=== PATIENT | female | born 1980 | race Caucasian/White ===

== ENCOUNTER 2021-10-08 11:05 | Emergency (ER) | payer SELFPAY ==
--- NOTE | 2021-10-08 11:40 | ER ---
Nurse's Notes [facility] Name: Timbo Samson Age: 40 yrs Sex: Female : 1980 Arrival Date: 10/08/2021 Time: 11:06 Bed 6 Private MD: Diagnosis: Cellulitis of left lower limb Presentation: 10/08 11:15 Chief complaint: Patient states: swelling to l ankle without injury x 5 days. states [facility] that she noticed increased swelling after moving and packing 5 days ago and has not go down. Coronavirus screen: Vaccine status: Client denies travel out of the [place] in the last 14 days. Ebola Screen: Patient negative for fever greater than or equal to 101.5 degrees Fahrenheit, and additional compatible Ebola Virus Disease symptoms Patient denies exposure to infectious person. Patient denies travel to an Ebola-affected area in the 21 days before illness onset. Initial Sepsis Screen: Does the patient meet any 2 criteria? No. Patient's initial sepsis screen is negative. Does the patient have a suspected source of infection? No. Patient's initial sepsis screen is negative. Risk Assessment: Do you want to hurt yourself or someone else? Patient reports no desire to harm self or others. Onset of symptoms was October 03, 2021. 11:15 Method Of Arrival: Ambulatory [facility] 11:15 Acuity: CHULA 3 [facility] Triage Assessment: 11:18 General: Appears in no apparent distress. Behavior is calm, cooperative. Pain: [facility] Complains of pain in left lateral ankle, left Achilles, left medial ankle and anterior aspect of left ankle Pain currently is 4 out of 10 on a pain scale. Quality of pain is described as aching, throbbing, Pain began Is continuous, Aggravated by increased activity. Musculoskeletal: Reports pain in left lateral ankle, left Achilles, left medial ankle and anterior aspect of left ankle. Historical: - Allergies: 11:19 No Known Allergies; 6 - PMHx: 11:19 None; [facility] - Immunization history:: Adult Immunizations up to date. - Social history:: Smoking status: Patient denies any tobacco usage or history of. Patient/guardian denies using alcohol, street drugs, The patient lives with family. - Family history:: not pertinent. Screenin:19 Abuse screen: Denies threats or abuse. Nutritional screening: No deficits noted. [facility] Tuberculosis screening: No symptoms or risk factors identified. Fall Risk None identified. Assessment: 11:44 General: see triage note. [facility] Vital Signs: 11:15 BP 166 / 66; Pulse 53; Resp 17; Temp 97.6; Pulse Ox 100% ; Weight 86.18 kg; Height 5 [facility] ft. 3 in. (160.02 cm); Pain 3/10; 11:15 Body Mass Index 33.66 (86.18 kg, 160.02 cm) [facility] ED Course: 11:06 Patient arrived in ED. am2 11:14 Teresa Mchugh, RN is Primary Nurse. [facility] 11:16 Elenita Gaines MD is Attending Physician. [facility] 11:18 Triage completed. [facility] 11:20 Arm band placed on left wrist. [facility] 11:20 Bed in low position. Call light in reach. Side rails up X 1. [facility] 11:45 No provider procedures requiring assistance completed. [facility] 11:45 Patient did not have IV access during this emergency room visit. [facility] Administered Medications: No medications were administered Outcome: 11:40 Discharge ordered by . [facility] 11:45 Discharged to home ambulatory. [facility] 11:45 Condition: good 11:45 Discharge instructions given to patient, Instructed on discharge instructions, Demonstrated understanding of instructions, follow-up care, medications, Prescriptions given X 2. 11:50 Patient left the ED. [facility] Signatures: Ailin Darby [facility] Elenita Gaines MD MD [facility] Teresa Mchugh, RN RN [facility]
--- NOTE | 2021-10-08 11:40 | EDPHYS ---
Physician Documentation [facility] Name: Timbo Samson Age: 40 yrs Sex: Female : 1980 Arrival Date: 10/08/2021 Time: 11:06 Bed 6 Private MD: ED Physician Elenita Gaines HPI: 10/08 11:40 This 40 yrs old Female presents to ER via Ambulatory with complaints of Foot Pain - ma2 swelling/left. 11:35 Associated signs and symptoms: Pertinent negatives: fever, nausea, numbness, rash, ma2 swelling, tingling, vomiting, warmth, weakness. 40-year-old female healthy, presents with mild left foot redness for 3 days, constant eval DVT no calf swelling, no change in sensation. No trauma.. Historical: - Allergies: 11:19 No Known Allergies; jh6 - PMHx: 11:19 None; [facility] - Immunization history:: Adult Immunizations up to date. - Social history:: Smoking status: Patient denies any tobacco usage or history of. Patient/guardian denies using alcohol, street drugs, The patient lives with family. - Family history:: not pertinent. ROS: 11:35 MS/extremity: Negative for abrasion, deformity, erythema, tenderness, tingling, warmth. ma2 11:35 Constitutional: Negative for fever, chills, and weight loss. 11:35 All other systems are negative. Exam: 11:35 Constitutional: This is a well developed, well nourished patient who is awake, alert, ma2 and in no acute distress. Head/Face: Normocephalic, atraumatic. Eyes: Pupils equal round and reactive to light, extra-ocular motions intact. Lids and lashes normal. Conjunctiva and sclera are non-icteric and not injected. Cornea within normal limits. Periorbital areas with no swelling, redness, or edema. ENT: Nares patent. No nasal discharge, no septal abnormalities noted. Tympanic membranes are normal and external auditory canals are clear. Oropharynx with no redness, swelling, or masses, exudates, or evidence of obstruction, uvula midline. Mucous membranes moist. Neck: Trachea midline, no thyromegaly or masses palpated, and no cervical lymphadenopathy. Supple, full range of motion without nuchal rigidity, or vertebral point tenderness. No Meningismus. Chest/axilla: Normal chest wall appearance and motion. Nontender with no deformity. No lesions are appreciated. Cardiovascular: Regular rate and rhythm with a normal S1 and S2. No gallops, murmurs, or rubs. Normal PMI, no JVD. No pulse deficits. Respiratory: Lungs have equal breath sounds bilaterally, clear to auscultation and percussion. No rales, rhonchi or wheezes noted. No increased work of breathing, no retractions or nasal flaring. Abdomen/GI: Soft, non-tender, with normal bowel sounds. No distension or tympany. No guarding or rebound. No evidence of tenderness throughout. Back: No spinal tenderness. No costovertebral tenderness. Full range of motion. Skin: Warm, dry with normal turgor. Normal color with no rashes, no lesions, and no evidence of cellulitis. MS/ Extremity: Mild left foot swelling, edema, this is consistent with cellulitis there is mild induration and warmth, redness. Pulses equal, no cyanosis. Neurovascular intact. Full, normal range of motion. Neuro: Awake and alert, GCS 15, oriented to person, place, time, and situation. Cranial nerves II-XII grossly intact. Motor strength 5/5 in all extremities. Sensory grossly intact. Cerebellar exam normal. Normal gait. Vital Signs: 11:15 BP 166 / 66; Pulse 53; Resp 17; Temp 97.6; Pulse Ox 100% ; Weight 86.18 kg; Height 5 jh6 ft. 3 in. (160.02 cm); Pain 3/10; 11:15 Body Mass Index 33.66 (86.18 kg, 160.02 cm) 6 MDM: 11:35 Differential diagnosis: sprain, arthritis, cellulitis. Data reviewed: vital signs, ma2 nurses notes. Counseling: I had a detailed discussion with the patient and/or guardian regarding: the historical points, exam findings, and any diagnostic results supporting the discharge/admit diagnosis, the presence of at least one elevated blood pressure reading (>120/80) during this emergency department visit, the need for outpatient follow up. Response to treatment: the patient's symptoms have markedly improved after treatment. 11:40 Patient medically screened. ma2 Administered Medications: No medications were administered Disposition Summary: 10/08/21 11:40 Discharge Ordered Location: Home ma2 Condition: Stable ma2 Diagnosis - Cellulitis of left lower limb ma2 Followup: ma2 - With: Private Physician - When: Tomorrow - Reason: Continuance of care Discharge Instructions: - Discharge Summary Sheet ma2 - Cellulitis, Adult ma2 Forms: - Medication Reconciliation Form ma2 - Thank You Letter ma2 - Antibiotic Education ma2 - Prescription Opioid Use ma2 Prescriptions: - Clindamycin HCl 300 mg Oral Capsule - take 1 capsule by ORAL route every 6 hours for 10 days; 40 capsule; Refills: 0, ma2 Product Selection Permitted - Diclofenac Sodium 75 mg Oral Tablet Sustained Release - take 1 tablet by ORAL route 2 times per day; 30 tablet; Refills: 0, Product ct2 Selection Permitted Signatures: Elenita Gaines MD MD ct2 Teresa Mchugh RN RN 6
[2021-10-08 12:21] VITALS: BP 166/66; TEMP 97.6; O2SAT 100
== END 2021-10-08 11:50 | disposition home or self-care (01) ==
LOC: ER 11:05
DX: L03.116 Cellulitis of left lower limb (principal)
CPT/HCPCS: 99282

== ENCOUNTER 2024-08-14 12:40 | Emergency (ER) | payer OTHER, SELFPAY ==
--- NOTE | 2024-08-14 15:26 | RAD REPORT ---
EXAMINATION: XR RIGHT SHOUDLER CLINICAL INDICATION: Female, 43 years old. PAIN TECHNIQUE: Multiple views of the right shoulder were obtained. COMPARISON: No prior exam. FINDINGS: Moderate calcification distal supraspinatus tendon compatible with calcific tendinitis. No acute fracture or dislocation.
[2024-08-14] MEDS ORDERED: HYDROCODONE/APAP 10/325 TAB ONE (16:02)
[2024-08-14] MEDS ORDERED: KETOROLAC 30 MG/ML INJ ONE (16:02)
--- NOTE | 2024-08-14 16:31 | ER ---
Nurse's Notes [facility] Name: Timbo Samson Age: 43 yrs Sex: Female : 1980 Arrival Date: 08/14/2024 Time: 12:40 Bed 12 Private MD: Diagnosis: Calcific tendinitis of right shoulder;Pain in right shoulder Presentation: 08/14 13:18 Chief complaint: Patient states: Hurt left shoulder last week at the gym, PCP gave jl7 steroid pack, finished 2 days ago, pain is worse. Coronavirus screen: At this time, the client does not indicate any symptoms associated with coronavirus-19. Ebola Screen: No symptoms or risks identified at this time. Initial Sepsis Screen: Does the patient meet any 2 criteria? No. Patient's initial sepsis screen is negative. Does the patient have a suspected source of infection? No. Patient's initial sepsis screen is negative. Risk Assessment: Do you want to hurt yourself or someone else? Patient reports no desire to harm self or others. Onset of symptoms is unknown. 13:18 Method Of Arrival: Ambulatory [facility] 13:18 Acuity: CHULA 4 jl7 Triage Assessment: 13:23 General: Appears in no apparent distress. uncomfortable, Behavior is calm, cooperative, jl7 appropriate for age. Pain: Complains of pain in anterior aspect of right shoulder Pain radiates to right arm Pain currently is 10 out of 10 on a pain scale. 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 - Infectious Disease History:: Denies. - Social history:: Smoking status: Patient reports the use of cigarette tobacco products, smokes one-half pack cigarettes per day. Screenin:30 Abuse screen: Denies threats or abuse. Denies injuries from another. Nutritional ss screening: No deficits noted. Tuberculosis screening: Never had TB. Assessment: 16:30 General: Appears uncomfortable, Behavior is calm, cooperative. Pain: Complains of pain ss in R shoulder Pain currently is 10 out of 10 on a pain scale. Quality of pain is described as aching, throbbing. Neuro: Level of Consciousness is awake, alert, obeys commands, Oriented to person, place, time, situation. Respiratory: Airway is patent Respiratory effort is even, unlabored, Respiratory pattern is regular, symmetrical. Derm: Skin is intact, is healthy with good turgor, Skin is pink, warm \T\ dry. normal. 16:59 Reassessment: Patient appears in no apparent distress at this time. Patient and/or ss family updated on plan of care and expected duration. Pain level reassessed. Patient is alert, oriented x 3, equal unlabored respirations, skin warm/dry/pink. Vital Signs: 13:18 BP 141 / 86; Pulse 84; Resp 17; Temp 97.5; Pulse Ox 98% ; Weight 76.2 kg; Height 5 ft. jl7 3 in. ; Pain 10/10; 13:18 Body Mass Index 29.76 (76.20 kg, 160.02 cm) jl7 13:18 Pain Scale: Adult jl7 ED Course: 12:41 Patient arrived in ED. im 12:47 Wojciech Mckeon MD is Attending Physician. [facility] 13:23 Triage completed. jl7 13:23 Arm band placed on right wrist. jl7 14:59 Shoulder Right 2+ Views In Process Unspecified. EDMS 15:59 Ludmila Green, BONILLA is Primary Nurse. ss 16:16 Clavicle/Shoulder strap applied on right clavicle/shoulder. ss 16:29 Celestine Crane MD is Referral Physician. [facility] 16:30 Patient has correct armband on for positive identification. Bed in low position. ss 16:59 No provider procedures requiring assistance completed. Patient did not have IV access ss during this emergency room visit. Administered Medications: 16:16 Drug: Gridley PO 10 mg-325 mg 1 tabs PO once Route: PO; 16:50 Follow up: Response: No adverse reaction 16:39 Drug: Ketorolac IM 60 mg IM once Route: IM; Site: left gluteus; 17:00 Follow up: Response: No adverse reaction 16:50 Drug: Diazepam PO 10 mg PO once Route: PO; ss 16:50 Follow up: Response: Medication Administered at Departure Medication: 16:30 VIS not applicable for this client. ss Outcome: 16:30 Discharge ordered by . [facility] 16:59 Discharged to home ambulatory, 16:59 Condition: good 16:59 Discharge instructions given to patient, Instructed on discharge instructions, follow up and referral plans. medication usage, Demonstrated understanding of instructions, follow-up care, medications, Prescriptions given X 4, 17:00 Patient left the ED. ss Signatures: Dispatcher [employer] EDWojciech Edward MD MD cha Blanchard, Shelby, RN RN ss Marylou Steele RN RN jl7 Annalisa Goetz
--- NOTE | 2024-08-14 16:31 | EDPHYS ---
Physician Documentation [facility] Name: Timbo Samson Age: 43 yrs Sex: Female : 1980 Arrival Date: 08/14/2024 Time: 12:40 Bed 12 Private MD: DAISY Physician Wojciech Mckeon HPI: 08/14 16:22 This 43 yrs old Female presents to ER via Ambulatory with complaints of Arm gabriel Pain - right. 16:22 The patient or guardian complains of decreased range of motion, injury, pain, that is gabriel acute. The complaints affect the anterior aspect of right shoulder and posterior aspect of right shoulder. Context: The problem was sustained at home, resulted from lifting or pulling, a heavy object. Onset: The symptoms/episode began/occurred 1 week(s) ago. Treatment prior to arrival includes: icing the affected extremity, over the counter medications, NSAIDS. Modifying factors: The symptoms are alleviated by remaining still, the symptoms are aggravated by movement. Associated signs and symptoms: The patient has no apparent associated signs or symptoms. Severity of symptoms: At their worst the symptoms were moderate, severe, in the emergency department the symptoms are unchanged. The patient has not experienced similar symptoms in the past. 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 - Infectious Disease History:: Denies. - Social history:: Smoking status: Patient reports the use of cigarette tobacco products, smokes one-half pack cigarettes per day. ROS: 16:24 Constitutional: Negative for fever, chills, and weight loss, Eyes: Negative for injury, gabriel pain, redness, and discharge, ENT: Negative for injury, pain, and discharge, Neck: Negative for injury, pain, and swelling, Cardiovascular: Negative for chest pain, palpitations, and edema, Respiratory: Negative for shortness of breath, cough, wheezing, and pleuritic chest pain, Abdomen/GI: Negative for abdominal pain, nausea, vomiting, diarrhea, and constipation, Back: Negative for injury and pain, : Negative for injury, bleeding, discharge, and swelling, Skin: Negative for injury, rash, and discoloration, Neuro: Negative for headache, weakness, numbness, tingling, and seizure, Psych: Negative for depression, anxiety, suicide ideation, homicidal ideation, and hallucinations, Allergy/Immunology: Negative for hives, rash, and allergies, Endocrine: Negative for neck swelling, polydipsia, polyuria, polyphagia, and marked weight changes, Hematologic/Lymphatic: Negative for swollen nodes, abnormal bleeding, and unusual bruising, 16:24 MS/extremity: Positive for decreased range of motion, pain, swelling, tenderness, of the anterior aspect of right shoulder and posterior aspect of right shoulder, Exam: 16:24 Constitutional: This is a well developed, well nourished patient who is awake, alert, gabriel and in no acute distress. Head/Face: Normocephalic, atraumatic. Eyes: Pupils equal round and reactive to light, extra-ocular motions intact. Lids and lashes normal. Conjunctiva and sclera are non-icteric and not injected. Cornea within normal limits. Periorbital areas with no swelling, redness, or edema. ENT: Nares patent. No nasal discharge, no septal abnormalities noted. Tympanic membranes are normal and external auditory canals are clear. Oropharynx with no redness, swelling, or masses, exudates, or evidence of obstruction, uvula midline. Mucous membranes moist. Neck: Trachea midline, no thyromegaly or masses palpated, and no cervical lymphadenopathy. Supple, full range of motion without nuchal rigidity, or vertebral point tenderness. No Meningismus. Chest/axilla: Normal chest wall appearance and motion. Nontender with no deformity. No lesions are appreciated. Cardiovascular: Regular rate and rhythm with a normal S1 and S2. No gallops, murmurs, or rubs. Normal PMI, no JVD. No pulse deficits. Respiratory: Lungs have equal breath sounds bilaterally, clear to auscultation and percussion. No rales, rhonchi or wheezes noted. No increased work of breathing, no retractions or nasal flaring. Abdomen/GI: Soft, non-tender, with normal bowel sounds. No distension or tympany. No guarding or rebound. No evidence of tenderness throughout. Back: No spinal tenderness. No costovertebral tenderness. Full range of motion. Skin: Warm, dry with normal turgor. Normal color with no rashes, no lesions, and no evidence of cellulitis. Neuro: Awake and alert, GCS 15, oriented to person, place, time, and situation. Cranial nerves II-XII grossly intact. Motor strength 5/5 in all extremities. Sensory grossly intact. Cerebellar exam normal. Normal gait. Psych: Awake, alert, with orientation to person, place and time. Behavior, mood, and affect are within normal limits. 16:24 Musculoskeletal/extremity: Extremities: grossly normal except: noted in the anterior aspect of right shoulder and posterior aspect of right shoulder: decreased ROM, pain, DVT Exam: No signs of deep vein thrombosis. no pain, no swelling, no tenderness, negative Homans' sign noted on exam, no appreciated bluish discoloration, no erythema, no increased warmth, Vital Signs: 13:18 BP 141 / 86; Pulse 84; Resp 17; Temp 97.5; Pulse Ox 98% ; Weight 76.2 kg; Height 5 ft. jl7 3 in. ; Pain 10/10; 13:18 Body Mass Index 29.76 (76.20 kg, 160.02 cm) jl7 13:18 Pain Scale: Adult jl7 MDM: 12:48 Medical Screening Exam initiated gabriel 16:27 Differential diagnosis: closed fracture, contusion, tendonitis. Data reviewed: vital gabriel signs, nurses notes, radiologic studies, plain films. Consideration of Admission/Observation Escalation of care including admission/observation considered. I considered the following discharge prescriptions or medication management in the emergency department Medications were administered in the Emergency Department. See MAR. Independent interpretation of the following test(s) in the Emergency Department X-Ray: My interpretation is CALCIFIC TENDONITIS. Test considered but Not performed: Labs: NO LABS. Historians other than the Patient: Spouse/Significant Other: WELL INFORMED. Care significantly affected by the following chronic conditions: HYPOTHYROID. Counseling: I had a detailed discussion with the patient and/or guardian regarding the historical points, exam findings, and any diagnostic results supporting the discharge/admit diagnosis, radiology results, the need for outpatient follow up, for definitive care, a family practitioner, a orthopedic surgeon. 08/14 14:59 Order name: Shoulder Right 2+ Views; Complete Time: 16:00 EDMS 08/14 13:33 Order name: Ice pack; Complete Time: 16:16 gabriel 08/14 13:33 Order name: Sling; Complete Time: 16:16 gabriel Administered Medications: 16:16 Drug: [employer] PO 10 mg-325 mg 1 tabs PO once Route: PO; ss 16:50 Follow up: Response: No adverse reaction ss 16:39 Drug: Ketorolac IM 60 mg IM once Route: IM; Site: left gluteus; ss 17:00 Follow up: Response: No adverse reaction 16:50 Drug: Diazepam PO 10 mg PO once Route: PO; ss 16:50 Follow up: Response: Medication Administered at Departure ss Disposition Summary: 08/14/24 16:30 Discharge Ordered Notes: Location: Home gabriel Problem: new gabriel Symptoms: have improved gabriel Condition: Stable gabriel Diagnosis - Calcific tendinitis of right shoulder gabriel - Pain in right shoulder gabriel Followup: gabriel - With: Private Physician - When: 2 - 3 days - Reason: Recheck today's complaints, Continuance of care, Re-evaluation by your physician Followup: gabriel - With: Celestine Crane MD - When: 2 - 3 days - Reason: Recheck today's complaints, Re-evaluation by your physician Discharge Instructions: - Discharge Summary Sheet gabriel - Joint Pain gabriel - Arthritis gabriel - Musculoskeletal Pain gabriel - Rotator Cuff Tendinitis gabriel - Shoulder Pain gabriel - Tendinitis gabriel - How to Use Cold Therapy, [id number] gabriel - Shoulder Range of Motion Exercises gabriel - Shoulder Pain, [id number] gabriel - Adhesive Capsulitis gabriel - Calcific Tendinitis [facility] Forms: - Medication Reconciliation Form gabriel - Antibiotic Education gabriel - Prescription Opioid Use gabriel - Patient Portal Instructions [facility] - Leadership Thank You Letter [facility] Prescriptions: - Diclofenac Sodium 75 mg Oral tablet, delayed release (enteric coated) - take 1 tablet ORAL route 2 times per day; 20 tablet; Refills: 0, Product gabriel Selection Permitted - methocarbamol 750 mg Oral tablet - take 1 tablet ORAL route 4 times per day; 28 tablet; Refills: 0, Product gabriel Selection Permitted - Tylenol-Codeine #3 300mg-30mg Oral tablet - take 2 tablets ORAL route every 6 hours As needed; 20 tablet; Refills: 0, [facility] Product Selection Permitted - Dexamethasone 4mg Oral tablet - take 1 tablet ORAL route daily for 4 days; 4 tablet; Refills: 0, Product gabriel Selection Permitted Signatures: Dispatcher [employer] Wojciech Hanna MD MD cha Blanchard, Shelby, RN RN Marylou Steele RN RN jl7 Corrections: (The following items were deleted from the chart) 14:59 13:34 Shoulder Left 2 View+[email or web address] ordered. EDMS EDMS
[2024-08-14] MEDS ORDERED: DIAZEPAM 5 MG TABLET ONE (16:46)
[2024-08-14 17:08] VITALS: BP 141/86; TEMP 97.5; O2SAT 98
== END 2024-08-14 17:00 | disposition home or self-care (01) ==
LOC: ER 12:40
DX: M75.31 Calcific tendinitis of right shoulder (principal); F17.210 Nicotine dependence, cigarettes, uncomplicated
CPT/HCPCS: 96372; 99284